=== PATIENT | male | born 1960 | race Caucasian/White ===

== ENCOUNTER 2021-09-29 08:02 | Outpatient (CLI) | payer BC, SELFPAY ==
--- NOTE | 2021-10-05 14:12 | WPDHOMESLEEP ---
Sleep Study - Home Unattended Date of Study: 09/29/21 Ordering Provider: Jose Cedeno APRN Interpreting Provider: Stephani Rizo, DO Home Sleep Study Type: Apnea Link Air Height: 1.8 m Weight: 158.757 kg Body Mass Index: 48.8 Neck Circumference (inches): 18 [place]: 1 Reason for Sleep Study Abnormal breathing in night. Sleep History The patient is a 61-year-old male with NATALIE that is compliant with PAP Therapy. The patient's current CPAP is 8 years old and is requesting a new machine. The [place] [id number]. He had a re-titration in 2013 at [facility] and was prescribed CPAP 13 cm H2O. He had bariatric surgery in 2016 and lost 100 pounds. the patient states that he has gained back some of the weight. He occasionally awakens from sleep short of breath. He occasionally awakens at night with heartburn, belching or cough. He occasionally snores loud enough that others complain. He frequently has trouble breathing when he has a cold. He rarely wakes up gasping for air throughout the night. He frequently has breathing problems at night observed by himself or others. He occasionally sweats excessively at night. He rarely notices heart palpitations or irregular heartbeats during the night. He rarely falls asleep during the day but never while driving. He rarely experiences loss of muscle tone when extremely emotional. He rarely has trouble at work due to sleepiness. He denies sleep paralysis. He occasionally experiences vivid dreamlike scenes upon awakening or falling asleep. He frequently has nightmares. He occasionally has thoughts racing through his mind. He rarely feels sad or depressed. He rarely has anxiety. He occasionally has muscular tension. He frequently notices parts of his body jerk. He occasionally kicks during the night. He frequently has crawling and aching feelings legs as well as leg pain during the night. He occasionally grinds his teeth during sleep and awakens with a morning jaw pain. He frequently bothered by pain during the day and occasionally awakened by pain during the night. He frequently wakes up feeling stiff in the morning with sore or achy muscles. He frequently wakes up with pain in the neck, spine or other joints. He goes to bed at 8-10 p.m. on both weekdays and weekends. It takes him 30-40 minutes to fall asleep. He wakes up 2-3 times throughout the night to urinate. He can fall back asleep within 20 minutes. He wakes up between 330 and 5:00 a.m. on both weekdays and weekends. He will not stay in bed after waking up in the morning. He currently lives with his . He does not consume any caffeinated beverages within 2 hours of bedtime. He does not engage in physical exercise before bedtime. He denies reading or watching television before falling asleep. He does not take naps in the afternoon of the evening. He drinks 4 caffeinated beverages per day. He drinks less than 1 alcoholic beverage per day. He denies tobacco use. He states that he does use recreational drugs. [facility] Surgical History Surgical History H/O bariatric surgery H/O wrist surgery History of back surgery History of knee replacement Family History Family History Mother Breast cancer Diabetes mellitus Hypertension Heart disease Father Hypertension Diabetes mellitus Sibling Hypertension Diabetes mellitus Other Family history of arthritis Social History Social History Smoking status: Never smoker Alcohol intake: current Drinks per week: 3 Substance use: never Additional occupation/education comments: [employer] Medications Home Medications Medication Instructions Recorded Confirmed Type eszopiclone 2 mg tablet 2 mg PO QHS #1 tablet 09/02/21 09/02/21 Rx tamsulosin 0.4 mg cap
[2021-10-05 15:00] VITALS: BMI 48.8
== END 2021-09-30 10:23 | disposition home or self-care (01) ==
LOC: ANHCSM 08:04
PROVIDERS: PCP Internal Medicine; Visit Provider Nurse Practitioner Family
DX: G47.30 Sleep apnea, unspecified (principal); G47.9 Sleep disorder, unspecified
CPT/HCPCS: 95806

== ENCOUNTER 2021-11-17 07:16 | Outpatient (CLI) | payer BC, SELFPAY ==
--- NOTE | 2021-11-25 11:13 | WPDHOMESLEEP ---
Sleep Study - Home Unattended Date of Study: 11/17/21 Ordering Provider: Jose Cedeno APRN Interpreting Provider: Penny Melgar MD Home Sleep Study Type: Apnea Link Air Height: 1.8 m Weight: 151.5 kg Body Mass Index: 46.5 Neck Circumference (inches): 17.25 [place]: 1 Reason for Sleep Study Known history of NATALIE,needs to re-qualify for CPAP; had bariatric surgery since last study 2015. * 2003 first sleep study outside the system, started CPAP * 08/30/2013 - CPAP re-titration; BMI 63.1; optimal pressure 13 cm CPAP. * 09/29/2021- Home Sleep Test using ApneaLink 3.0, lowest desaturation 89%; he used CPAP in the days leading up to the HST. Sleep History Kevin Garner is a 61-year-old male with NATALIE who is compliant with PAP Therapy. The patient's current CPAP is 8 years old and is requesting a new machine. The patient was diagnosed with NATALIE around 2003. He had a re-titration in 2013 at [facility] and was prescribed CPAP 13 cm water pressure. He had bariatric surgery in 2016 and lost 100 pounds. The patient states that he has gained back some of the weight. He occasionally awakens from sleep feeling short of breath. He occasionally awakens at night with heartburn, belching or coughing. He occasionally snores loudly enough that others complain. He frequently has trouble breathing when he has a cold. He rarely wakes up gasping for air throughout the night. He frequently has breathing problems at night observed by himself or others. He occasionally sweats excessively at night. He rarely notices heart palpitations or irregular heartbeats during the night. He rarely falls asleep during the day but never falls asleep while driving. He rarely experiences loss of muscle tone when extreme emotional. He rarely has trouble at work due to sleepiness. He denies sleep paralysis. He occasionally experiences vivid dreamlike scenes upon awakening or falling asleep. He frequently has nightmares. He occasionally has thoughts racing through his mind. He rarely feels sad or depressed. He rarely has anxiety. He occasionally has muscular tension. He frequently notices parts of his body jerk. He occasionally kicks during the night. He frequently has crawling and aching feelings legs as well as leg pain during the night. He occasionally grinds his teeth during sleep and awakens with a morning jaw pain. He frequently bothered by pain during the day and occasionally awakened by pain during the night. He frequently wakes up feeling stiff in the morning with sore or achy muscles. He frequently wakes up with pain in the neck, spine or other joints. He does not wake up feeling refreshed and is tired in the day. He has headaches. Normal bedtime is between 8-10 p.m., taking 30-40 minutes to fall asleep. He wakes up 2-3 times throughout the night to urinate. He can fall back asleep within 20 minutes. He wakes up between 3:30 a.m. and 5:00 a.m.. He currently lives with his . He does not take naps in the afternoon or the evening. Habits: No tobacco. He drinks 4 caffeinated beverages per day. He drinks less than 1 alcoholic beverage per day. No recreational drugs. [facility] Past Medical History Medical History (Updated 11/25/21 @ 11:39 by Penny Melgar MD) Edema Obstructive sleep apnea Restless leg syndrome (~11/2021) Urinary frequency Surgical History Surgical History H/O bariatric surgery H/O wrist surgery History of back surgery History of knee replacement Family History Family History Mother Breast cancer Diabetes mellitus Hypertension Heart disease Father Hypertension Diabetes mellitus Sibling Hypertension Diabetes mellitus Other Family history of arthritis Social History Social History Smoking status: Never smoker Alcohol intake: current D
[2021-11-25 11:41] VITALS: BMI 46.5
== END 2021-11-18 11:55 | disposition home or self-care (01) ==
LOC: ANHCSM 07:17
PROVIDERS: PCP Internal Medicine; Visit Provider Nurse Practitioner Family
DX: G47.33 Obstructive sleep apnea (adult) (pediatric) (principal); G25.81 Restless legs syndrome
CPT/HCPCS: 95806